=== PATIENT | male | born 1970 | race Hispanic/Latino ===

== ENCOUNTER 2022-07-18 16:10 | Emergency (ER) | payer BC | END 2022-07-18 19:00 | disposition home or self-care (01) | LOC: CSHERS 16:10 | DX: E86.0 Dehydration (principal); I10 Essential (primary) hypertension; K21.9 Gastro-esophageal reflux disease without esophagitis; E78.5 Hyperlipidemia, unspecified | CPT/HCPCS: 93005 ==